=== PATIENT | female | born 1990 | race Hispanic/Latino ===

== ENCOUNTER 2022-03-23 16:03 | Emergency (ER) | payer MEDICAID ==
[~2022-03-23] VITALS: Ht 149.9 cm; Wt 68.0 kg
[~2022-03-23 16:03] MED LIST: ACET-2079 PO; DOCU-116 PO; IBUP-2077 PO; PREN-154 PO; PREN-196 PO
[2022-03-23 16:36] LABS: APPEARANCE,URINE CLEAR (CLEAR); BILIRUBIN,URINE NEGATIVE (NEGATIVE); COLOR,URINE YELLOW (YELLOW); GLUCOSE, URINE (UA) NEGATIVE (NEGATIVE); KETONES,URINE NEGATIVE (NEGATIVE); LEUKOCYTE ESTERASE ,URINE NEGATIVE (NEGATIVE); NITRATE,URINE NEGATIVE (NEGATIVE); OCCULT BLOOD,URINE TRACE-INTACT (NEGATIVE); PH,URINE 5.5 (5.0-8.0); PROTEIN,URINE NEGATIVE (NEGATIVE); UROBILINOGEN,URINE 0.2 mg/dL (0.2-1.0)
[2022-03-23 16:38] LABS: HCG,QUAL RESULT NEGATIVE (NEGATIVE)
[2022-03-23 16:54] LABS: BACTERIA,URINE Few /HPF (None Seen); MUCUS,URINE Few LPF (None Seen); SQUAMOUS EPITHELIAL CELL,UR Few /HPF (0-2)
[2022-03-23] MEDS ORDERED: KETOROLAC 15MG/ML VIAL (15MG/ML) IV ONE (17:00)
[2022-03-23] MEDS ORDERED: PROCHLORPERAZINE 10MG/2ML INJ IV ONE (17:00)
[2022-03-23] MEDS ORDERED: 0.9%NACL 1000ML 1,000 ML IV ONE (17:00)
[2022-03-23] MEDS ORDERED: DiphenhydrAMINE HCL 50 MG/ML VIAL IV ONE (17:00)
[2022-03-23] MEDS ORDERED: NAPR500T6 PO (17:29)
[2022-03-23] MEDS ORDERED: CYCL10TA16 PO (17:29)
[2022-03-23 17:43] VITALS: BP 110/68
== END 2022-03-23 17:54 | disposition home or self-care (01) ==
LOC: EDH 16:44
DX: M54.12 Radiculopathy, cervical region (principal); R51.9 Headache, unspecified; R11.2 Nausea with vomiting, unspecified; M54.50 Low back pain, unspecified; Z79.1 Long term (current) use of non-steroidal anti-inflammatories (NSAID)
CPT/HCPCS: 81001; 81025; 93005; 96361; 96374; 96375; 99284; J0780; J1200; J1885; J7030